=== PATIENT | female | born 2000 | race Caucasian/White ===

== ENCOUNTER 2022-08-06 15:03 | Emergency (ER) | payer BC, MEDICAID | END 2022-08-06 17:29 | disposition home or self-care (01) | LOC: JP.ED 15:03 | DX: O03.4 Incomplete spontaneous abortion without complication (principal) | CPT/HCPCS: 36415; 76801; 76817; 84702; 85025; 99284 ==

== ENCOUNTER 2024-06-03 06:21 | Emergency (ER) | payer BC ==
[2024-06-03] MEDS: HYDROmorphone 0.5 MG/0.5 ML Syringe IVPUSH ONE (06:58)
[2024-06-03] MEDS: Ondansetron 4 MG/2 ML SDV IVPUSH ONE (06:58)
[2024-06-03] MEDS: Sodium Chloride 0.9% 1,000 ML IV SCH (07:18)
[2024-06-03 07:23] LABS: BASOPHILS PERCENT AUTO 0.2 % (0.1-1.3); EOSINOPHILS PERCENT AUTO 0.1 % (0.0-5.4); HEMATOCRIT 38.1 % (34.3-46.0); HEMOGLOBIN 13.7 g/dL (11.2-15.5); IMMATURE GRAN ABSOLUTE AUTO 0.05 K/uL (0.00-0.23); IMMATURE GRAN PERCENT AUTO 0.4 % (0.0-0.7); LYMPHOCYTES ABSOLUTE AUTO 1.42 K/uL (0.8-3.3); MEAN CORPUSCULAR VOLUME 80.7 fL (81.4-99.0); MONOCYTES ABSOLUTE AUTO 0.44 K/uL (0.20-0.90); MONOCYTES PERCENT AUTO 3.7 % (3.3-12.6); NEUTROPHILS ABSOLUTE AUTO 9.85 K/uL (1.0-7.6); NEUTROPHILS PERCENT AUTO 83.6 % (40.0-78.1); PLATELET COUNT,PLT 299 K/uL (130-375); RED BLOOD CELL COUNT 4.72 M/uL (3.77-5.24); WHITE BLOOD CELL COUNT,WBC 11.8 K/uL (3.2-11.0)
[2024-06-03 07:25] LABS: BASOPHILS ABSOLUTE AUTO 0.02 K/uL (0.00-0.10); EOSINOPHILS ABSOLUTE AUTO 0.01 K/uL (0.00-0.40)
[2024-06-03 07:30] LABS: A/G RATIO 1.1 (1.2-2.2); ALANINE AMINOTRANSFERASE,ALT 18 U/L (12-78); ALBUMIN 4.3 g/dL (3.4-5.0); ALKALINE PHOSPHATASE 66 U/L (46-116); ASPARTATE AMNIOTRANSFERASE,AST 17 U/L (15-37); BILIRUBIN TOTAL 0.4 mg/dL (0.2-1.0); BLOOD UREA NITROGEN,BUN 12 mg/dL (7-18); CALCIUM 9.3 mg/dL (8.5-10.1); CARBON DIOXIDE,CO2 23 mmol/L (21-32); CHLORIDE,CL 105 mmol/L (100-108); ESTIMATED GFR 81 mL/min (>60); GLUCOSE RANDOM 128 mg/dL (74-106); PROTEIN TOTAL,TP 8.2 g/dL (6.4-8.2); SODIUM,NA 141 mmol/L (140-148)
[2024-06-03] MEDS: Sodium Chloride 0.9% 10 ML Syringe FLUSH PRN (07:46)
[2024-06-03] MEDS: Iopamidol 612 MG/ML 100 ML Bottle IV PRN (07:51)
[2024-06-03] MEDS: Sodium Chloride 0.9% 80 ML IV SCH (07:51)
== END 2024-06-03 09:10 | disposition home or self-care (01) ==
LOC: JP.ED 06:21
DX: R10.11 Right upper quadrant pain (principal)
CPT/HCPCS: 36415; 74177; 80053; 83605; 83690; 85025; 96361; 96374; 96375; 99284; J1170; J2405; J3490; J7030; Q9967

== ENCOUNTER 2024-07-07 06:26 | Day surgery (SDC) | payer BC ==
[2024-07-07] MEDS: metroNIDAZOLE/Normal Saline 500 MG in Premix Bag 1 BAG IV ONE (06:50)
[2024-07-07] MEDS: Indocyanine Green 25 MG SDV IV ONE (06:51)
[2024-07-07] MEDS: Lactated Ringers 1,000 ML IV SCH (06:53)
[2024-07-07 06:54] LABS: HEMATOCRIT 38.9 % (34.3-46.0); HEMOGLOBIN 13.3 g/dL (11.2-15.5); MEAN CORPUSCULAR HEMOGLOBIN 28.7 pg (31.6-35.5); MEAN CORPUSCULAR HGB CONC 34.2 g/dL (31.6-35.5); RED BLOOD CELL COUNT 4.63 M/uL (3.77-5.24); WHITE BLOOD CELL COUNT,WBC 8.2 K/uL (3.2-11.0)
[2024-07-07] MEDS ORDERED: Propofol 200 MG/20 ML SDV ONE (07:08)
[2024-07-07] MEDS ORDERED: Glycopyrrolate 0.2 MG/ML 5 ML MDV ONE (07:08)
[2024-07-07] MEDS ORDERED: Ondansetron 4 MG/2 ML SDV ONE (07:08)
[2024-07-07] MEDS ORDERED: Rocuronium 50 MG/5 ML Vial ONE (07:08)
[2024-07-07] MEDS ORDERED: Succinylcholine 200 MG/10 ML MDV ONE (07:08)
[2024-07-07] MEDS ORDERED: Dexamethasone 4 MG/ML SDV ONE (07:08)
[2024-07-07] MEDS ORDERED: Neostigmine Methylsulfate 10 MG/10 ML MDV ONE (07:08)
[2024-07-07] MEDS ORDERED: fentaNYL 250 MCG/5 ML SDV ONE ×2 (07:10→07:44)
[2024-07-07 07:15] LABS: ALANINE AMINOTRANSFERASE,ALT 21 U/L (12-78); ALBUMIN 3.9 g/dL (3.4-5.0); ALKALINE PHOSPHATASE 70 U/L (46-116); ANION GAP 10.2 mmol/L (5.0-14.0); ASPARTATE AMNIOTRANSFERASE,AST 13 U/L (15-37); BILIRUBIN TOTAL 0.4 mg/dL (0.2-1.0); BLOOD UREA NITROGEN,BUN 10 mg/dL (7-18); CALCIUM 9.1 mg/dL (8.5-10.1); CARBON DIOXIDE,CO2 26 mmol/L (21-32); CHLORIDE,CL 106 mmol/L (100-108); ESTIMATED GFR 81 mL/min (>60); GLUCOSE RANDOM 96 mg/dL (74-106); POTASSIUM,K 3.7 mmol/L (3.6-5.2); PROTEIN TOTAL,TP 7.8 g/dL (6.4-8.2); SODIUM,NA 142 mmol/L (140-148)
[2024-07-07] MEDS ORDERED: Ketorolac 30 MG/ML SDV ONE (07:52)
[2024-07-07] MEDS ORDERED: ceFAZolin 2 GM in Sodium Chloride 0.9% 50 ML IV ONE (08:00)
[2024-07-07] MEDS: Ropivacaine 44 ML, dexAMETHasone 8 MG, EPINEPHrine 0.4 MG, Sodium Chloride 0.9% 33.6 ML NERVRT SCH (08:15)
[2024-07-07] MEDS ORDERED: Labetalol 20 MG/4 ML Syringe ONE (08:16)
[2024-07-07] MEDS: ceFAZolin 2 GM in Water For Injection, Sterile 20 ML IV ONE (08:25)
[2024-07-07] MEDS: Bupivacaine 0.5% 50 ML MDV ONE (08:32)
[2024-07-07] MEDS: Lidocaine 1% with EPINEPHrine 1:100,000 50 ML MDV ONE (08:32)
[2024-07-07] MEDS ORDERED: Lactated Ringers 1,000 ML ONE (09:06)
[2024-07-07] MEDS: Acetaminophen/HYDROcodone 325-5 MG Tab PO ONE (11:46)
== END 2024-07-07 12:18 | disposition home or self-care (01) ==
LOC: JP.SDS 06:26
PROVIDERS: ATTEND Surgery
DX: K80.10 Calculus of gallbladder with chronic cholecystitis without obstruction (principal)
CPT/HCPCS: 00790-QZ; 36415; 80053; 84703; 85027; 88304; A9270-GY; J0171; J0330; J0665; J0690; J1100; J1596; J1836; J1885; J1920; J2405; J2704; J2710; J2795; J3010; J3490; J7120

== ENCOUNTER 2024-11-23 21:08 | Emergency (ER) | payer BC, OTHER | END 2024-11-23 23:30 | disposition home or self-care (01) | LOC: JP.ED 21:08 | DX: H66.91 Otitis media, unspecified, right ear (principal); Z90.49 Acquired absence of other specified parts of digestive tract | CPT/HCPCS: 99283 ==